=== PATIENT | female | born 1975 | race African-American/Black ===

== ENCOUNTER 2019-02-04 05:06 | Day surgery (SDC) | payer BC, OTHER ==
[2019-02-02 13:29] VITALS: BMI 27.4
[2019-02-04] MEDS ORDERED: PROPOFOL 20 ML ONE ×2 (07:42)
[2019-02-04] MEDS ORDERED: EPHEDRINE SULFATE/0.9% NACL/PF 50 MG/10 ML SYRINGE NR ONE (07:42)
[2019-02-04] MEDS ORDERED: ROCURONIUM BROMIDE 50 MG/5 ML SYRINGE ONE (07:42)
[2019-02-04] MEDS ORDERED: MIDAZOLAM HCL 2 MG/2 ML SINGLE DOSE VIAL ONE (07:43)
[2019-02-04] MEDS ORDERED: ACETAMINOPHEN 325 MG TABLET (FP) PO PRN (07:52)
[2019-02-04] MEDS ORDERED: IBUPROFEN 400 MG TABLET (FP) PO PRN (07:52)
--- NOTE | 2019-02-04 07:52 | HP ---
History & Physical Update - History History: No Change - Physical Physical: No Change - Assessment Assessment: No Change - Plan Plan: No Change (No change in HP)
[2019-02-04] MEDS ORDERED: KETOROLAC TROMETHAMINE 30 MG/1 ML VIAL ONE (08:23)
[2019-02-04] MEDS ORDERED: DEXAMETHASONE SOD PHOSPHATE 4 MG/1 ML VIAL ONE (08:23)
[2019-02-04] MEDS ORDERED: LIDOCAINE HCL/PF 2% SDV 5ML VIAL ONE (08:23)
[2019-02-04 14:20] VITALS: BP 122/69; PULSE 81; TEMP 98.4
--- NOTE | 2019-02-05 18:59 | PATH ---
Surgical Pathology Report Patient Name: KEE DELC ASTILLO Med. Rec. #: [id number] /Age/Gender: 1975 (Age: 43) / F Account: [id number] Location: [facility] SURGICAL Taken: 02/04/2019 Received: 02/04/2019 Reported: 02/05/2019 Physicians: Lala Ledezma M.D. Specimen(s) Received MYOMA AND POLYP Clinical History Endometrial polyp Final Diagnosis MYOMA AND POLYP, HYSTEROSCOPIC MYOMECTOMY, SUCTION DILATION AND CURETTAGE: 6 G, FRAGMENTS OF SUBMUCOSAL LEIOMYOMA, ENDOMETRIAL POLYP, PROLIFERATIVE ENDOMETRIUM, AND BENIGN CERVICAL TISSUE. Electronically Signed Sheri Mckinney M.D. Gross Description Received in formalin labeled "myoma and polyp" are multiple irregular fragments of pink-vásquez hemorrhagic soft tissue measuring 6 g, and 5 x 4 x 1.8 cm in aggregate. Entire specimen is submitted in 3 cassettes. MLSZ/02/04/2019 sanisa/02/04/2019
--- NOTE | 2019-02-22 15:52 | OP ---
DATE OF OPERATION: 02/04/2019 PREOPERATIVE DIAGNOSIS: Endometrial polyp. OPERATION: Hysteroscopic myomectomy, suction dilation and curettage. SURGEON: Lala Ledezma MD FINDINGS: Endometrial polyp and submucosal myoma. DESCRIPTION OF PROCEDURE: Patient was taken to the operating room and placed in dorsal lithotomy position. Prepped and draped in the usual sterile fashion. Time-out was performed in accordance with hospital regulation. Speculum was placed in the vagina. Anterior lip of the cervix was grasped with a single-tooth tenaculum. Cervix then dilated to accommodate the operative hysteroscope. Numerous amount of endometrial polyps and submucosal myoma was seen. Cautery and cutting of the endometrial polyps and submucosal myoma was done. Large amount of endometrial submucosal myoma was submitted. Endometrial cavity was noted to be improved. Approximately about 4-5 cm of submucosal myoma and polyps were submitted. Hemostasis was achieved. All instruments were then removed. Estimated blood loss was about 40 mL. Marianna [id number]
== END 2019-02-04 12:45 | disposition home or self-care (01) ==
LOC: JASU-SURG 05:06
PROVIDERS: ATTEND Obstetrics & Gynecology
PROC: 0UB98ZX Excision of Uterus, Via Natural or Artificial Opening Endoscopic, Diagnostic (ICD-10-PCS; principal; 2019-02-04 12:15)
PROC: 0UDB8ZX Extraction of Endometrium, Via Natural or Artificial Opening Endoscopic, Diagnostic (ICD-10-PCS; 2019-02-04 12:15)
DX: D25.0 Submucous leiomyoma of uterus (principal); N84.0 Polyp of corpus uteri
CPT/HCPCS: 86850; 86900; 86901; 86922; 88305-TC; 94760